=== PATIENT | male | born 1995 | race Caucasian/White ===

== ENCOUNTER 2017-04-30 00:16 | Emergency (ER) | payer SELFPAY ==
[2017-04-30 00:46] VITALS: BP 115/85; PULSE 98; TEMP 98.2; BMI 25.7
--- NOTE | 2017-04-30 01:57 | PDOC ---
History of Present Illness - General Chief Complaint: Cold Symptoms Stated Complaint: COUGH Time Seen by Provider: 04/30/17 00:42 History Source: Patient Exam Limitations: No Limitations - History of Present Illness Initial Comments: 04/30/17 02:31 22-year-old male presents to the emergency department with his girlfriend complaining of a nonproductive intermittent cough 2 weeks with fever 5 days ago which has subsided with Motrin. Patient states he hasn't taken any antipyretic medication for 5 days. He denies nausea/vomiting, chills, headache, dizziness, lightheadedness, neck pains, chest pain, shortness of breath, abdominal discomfort, flank pains or urinary symptoms. 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 Timing/Duration: reports: week Possible Cause: Yes: no prior episodes Associated Symptoms: reports: cough. denies: chest pain/soreness, dizziness, earache, facial pain, fever/chills, nasal congestion Past History - Past Medical History Allergies/Adverse Reactions: Allergies Allergy/AdvReac Type Severity Reaction Status Date / Time No Known Allergies Allergy Verified 04/30/17 00:37 Home Medications: Ambulatory Orders Azithromycin [Zithromax -] 250 mg PO UTDICT #6 tab 04/30/17 Prednisone [Deltasone -] 40 mg PO DAILY #4 tablet 04/30/17 - Psycho/Social/Smoking Cessation Hx Suicidal Ideation: No Smoking History: Never smoked Have you smoked in the past 12 months: No Information on smoking cessation initiated: No Hx Alcohol Use: No Drug/Substance Use Hx: No Review of Systems - Review of Systems Able to Perform ROS?: Yes Comments:: 04/30/17 01:57 CONSTITUTIONAL: Absent: fever, chills, diaphoresis, generalized weakness, malaise, loss of appetite HEENT: Absent: rhinorrhea, nasal congestion, throat pain, throat swelling, difficulty swallowing, mouth swelling, ear pain, eye pain, visual Changes CARDIOVASCULAR: Absent: chest pain, loss of consciousness, palpitations, irregular heart rate, peripheral edema RESPIRATORY: +cough Absent: shortness of breath, dyspnea with exertion, orthopnea, wheezing, stridor, hemoptysis GASTROINTESTINAL: Absent: abdominal pain, abdominal distension, nausea, vomiting, diarrhea, constipation, melena, hematochezia GENITOURINARY: Absent: dysuria, frequency, urgency, hesitancy, hematuria, flank pain, genital pain MUSCULOSKELETAL: Absent: myalgia, arthralgia, joint swelling SKIN: Absent: rash, itching, pallor HEMATOLOGIC/IMMUNOLOGIC: Absent: easy bleeding, easy bruising, lymphadenopathy, frequent infections ENDOCRINE: Absent: unexplained weight gain, unexplained weight loss, heat intolerance, cold intolerance NEUROLOGIC: Absent: headache, focal weakness or paresthesias, dizziness, unsteady gait, seizure, mental status changes, bladder or bowel incontinence PSYCHIATRIC: Absent: anxiety, depression, suicidal or homicidal ideation, hallucinations. Is the patient limited Pashto proficient: No *Physical Exam - Vital Signs Last Vital Signs Temp Pulse Resp BP Pulse Ox 98.2 F 98 H 20 115/85 98 04/30/17 00:37 04/30/17 00:37 04/30/17 00:37 04/30/17 00:37 04/30/17 00:37 - Physical Exam Comments: 04/30/17 01:57 GENERAL: Well developed, well nourished. Awake and alert. No acute distress. HEENT: Normocephalic, atraumatic. PERRLA, EOMI. No conjunctival pallor. Sclera are non- icteric. Moist mucous membranes. Oropharynx is clear. NECK: Supple. Full ROM. No JVD. Carotid pulses 2+ and symmetric, without bruits. No thyromegaly. No lymphadenopathy. CARDIOVASCULAR: Regular rate and rhythm. No murmurs, rubs, or gallops. Distal pulses are 2+ and symmetric. PULMONARY: No evidence of respiratory distress. Lungs clear to auscultation bilaterally. No wheezing, rales or rhonchi. ABDOMINAL: Soft. Non-tender. Non-distended. No rebound or guarding. No organomegaly. Normoactive bowel sounds. MUSCULOSKELETAL Normal range of motion at all joints. No bony deformities or tenderness. No CVA tenderness. EXTREMITIES: No cyanosis. No clubbing. No edema. No calf tenderness. SKIN: Warm and dry. Normal capillary refill. No rashes. No jaundice. NEUROLOGICAL: Alert, awake, appropriate. Cranial nerves 2-12 intact. No deficits to light touch and temperature in face, upper extremities and lower extremities. No motor deficits in the in face, upper extremities and lower extremities. Normoreflexic in the upper and lower extremities. Normal speech. Toes are down- going bilaterally. Gait is normal without ataxia. PSYCHIATRIC: Cooperative. Good eye contact. Appropriate mood and affect. ED Treatment Course - RADIOLOGY Radiology Studies Ordered: Category Date Time Status CHEST PA & LAT [RAD] Stat Radiology 04/30/17 01:21 Taken *DC/Admit/Observation/Transfer Diagnosis at time of Disposition: Acute bronchitis Qualifiers: Bronchitis organism: unspecified organism Qualified Code(s): J20.9 - Acute bronchitis, unspecified - Discharge Dispostion Disposition: HOME Condition at time of disposition: Stable Admit: No - Prescriptions Prescriptions: Prednisone [Deltasone -] 40 mg PO DAILY #4 tablet Azithromycin [Zithromax -] 250 mg PO UTDICT #6 tab - Referrals Referrals: Gigi Iniguez MD [Staff Physician] - - Patient Instructions Printed Discharge Instructions: DI for Acute Bronchitis Additional Instructions: Rest Take prednisone Take your antibiotics Follow up with your physician Return to the ER for severe/Persistent/worsening symptoms.
[2017-04-30] MEDS ORDERED: predniSONE 20 MG TABLET (UD) PO ONE (02:25)
[2017-04-30] MEDS ORDERED: predniSONE 20 MG TABLET (UD) ONE (02:30)
== END 2017-04-30 02:35 | disposition home or self-care (01) ==
LOC: JER 00:16
DX: J20.9 Acute bronchitis, unspecified (principal)
CPT/HCPCS: 71020-TC; 99281-25

== ENCOUNTER 2022-03-22 18:27 | Emergency (ER) | payer BC ==
[2022-03-22 19:00] VITALS: BP 110/73; PULSE 79; TEMP 97.5; BMI 29.9
== END 2022-03-22 20:54 | disposition home or self-care (01) ==
LOC: JERFT 18:27
DX: S62.603A Fracture of unspecified phalanx of left middle finger, initial encounter for closed fracture (principal); W01.0XXA Fall on same level from slipping, tripping and stumbling without subsequent striking against object, initial encounter
CPT/HCPCS: 73140-TC-LT-FY; 99283-25

== ENCOUNTER 2022-11-08 03:35 | Emergency (ER) | payer BC ==
[2022-11-08 03:47] VITALS: BP 136/85; PULSE 105; RESP 20; TEMP 99.5; BMI 30.8
[2022-11-08] MEDS ORDERED: DEXAMETHASONE SOD PHOSPHATE 10 MG/1 ML VIAL IM ONE (04:01)
[2022-11-08] MEDS ORDERED: KETOROLAC TROMETHAMINE 15 MG/ML VIAL IM ONE (04:01)
[2022-11-08] MEDS ORDERED: ACETAMINOPHEN 500 MG TABLET (FP) PO ONE (04:01)
[2022-11-08] MEDS ORDERED: KETOROLAC TROMETHAMINE 15 MG/ML VIAL ONE (04:04)
[2022-11-08] MEDS ORDERED: ACETAMINOPHEN 500 MG TABLET (FP) ONE (04:04)
[2022-11-08] MEDS ORDERED: DEXAMETHASONE SOD PHOSPHATE 10 MG/1 ML VIAL ONE (04:04)
[2022-11-08 04:56] LABS: THROAT:GRP A STREP NOT DETECTED (NOTDETECTED)
== END 2022-11-08 07:21 | disposition home or self-care (01) ==
LOC: JERFT 03:35 → JER 03:35
PROC: 3E023GC Introduction of Other Therapeutic Substance into Muscle, Percutaneous Approach (ICD-10-PCS; principal; 2022-11-08)
DX: J11.1 Influenza due to unidentified influenza virus with other respiratory manifestations (principal)
CPT/HCPCS: 0241U-QW; 87070; 87651; 99284-25; J1100

== ENCOUNTER 2023-02-01 10:30 | Emergency (ER) | payer BC ==
[2023-02-01 10:37] VITALS: BP 126/80; PULSE 67; RESP 18; TEMP 97.7; BMI 30.7
== END 2023-02-01 13:25 | disposition home or self-care (01) ==
LOC: JERFT 10:30
DX: H00.014 Hordeolum externum left upper eyelid (principal)
CPT/HCPCS: 99282-25

== ENCOUNTER 2023-10-22 20:21 | Emergency (ER) | payer BC ==
[2023-10-22 20:32] VITALS: BP 134/77; PULSE 68; RESP 18; TEMP 97.9; BMI 30.7
[2023-10-22] MEDS ORDERED: KETOROLAC TROMETHAMINE 30 MG/1 ML VIAL ONE (21:29)
[2023-10-22] MEDS ORDERED: KETOROLAC TROMETHAMINE 30 MG/1 ML VIAL IM ONE (21:29)
[2023-10-22 22:33] LABS: THROAT:GRP A STREP NOT DETECTED (NOTDETECTED)
== END 2023-10-22 23:07 | disposition home or self-care (01) ==
LOC: JER 20:21 → JERFT 20:21
PROC: 3E0233Z Introduction of Anti-inflammatory into Muscle, Percutaneous Approach (ICD-10-PCS; principal; 2023-10-22)
DX: M54.2 Cervicalgia (principal); G44.209 Tension-type headache, unspecified, not intractable; Z20.822 Contact with and (suspected) exposure to COVID-19
CPT/HCPCS: 0241U-QW; 72040-TC; 87651; 99284-25